=== PATIENT | female | born 1950 | race Caucasian/White ===

== ENCOUNTER 2023-04-08 11:03 | Outpatient (RCR) | payer MEDICARE, OTHER, SELFPAY | END 2023-04-08 23:59 | disposition home or self-care (01) | LOC: ROT 11:03 | PROVIDERS: ATTENDING PHYSICIAN Orthopaedic Surgery Hand Surgery | DX: S61.216D Laceration without foreign body of right little finger without damage to nail, subsequent encounter (principal); Z73.6 Limitation of activities due to disability | CPT/HCPCS: 97010; 97022; 97110; 97140; 97535 ==

== ENCOUNTER 2023-04-15 11:04 | Outpatient (RCR) | payer MEDICARE, OTHER, SELFPAY | END 2023-04-15 23:59 | disposition home or self-care (01) | LOC: ROT 11:04 | PROVIDERS: ATTENDING PHYSICIAN Orthopaedic Surgery Hand Surgery | DX: S61.216D Laceration without foreign body of right little finger without damage to nail, subsequent encounter (principal); Z73.6 Limitation of activities due to disability | CPT/HCPCS: 97022; 97110; 97140 ==

== ENCOUNTER 2023-07-08 09:59 | Outpatient (RCR) | payer MEDICARE, OTHER, SELFPAY | END 2023-07-08 23:59 | disposition home or self-care (01) | LOC: ROT 09:59 | PROVIDERS: ATTENDING PHYSICIAN Orthopaedic Surgery Hand Surgery; FAMILY PHYSICIAN Nurse Practitioner Family | DX: Z98.890 Other specified postprocedural states (principal); Z73.6 Limitation of activities due to disability | CPT/HCPCS: 97018; 97110; 97140; 97166; 97535 ==

== ENCOUNTER → 2024-01-10 12:00 | Outpatient (REF) | payer MEDICARE, OTHER, SELFPAY | LOC: DHSLP 12:00 | PROVIDERS: ATTENDING PHYSICIAN Internal Medicine; FAMILY PHYSICIAN Family Medicine | DX: G47.33 Obstructive sleep apnea (adult) (pediatric) (principal) | CPT/HCPCS: 95800 ==

== ENCOUNTER 2024-03-13 09:40 | Emergency (ER) | payer MEDICARE, OTHER, SELFPAY ==
[2024-03-13 09:55] VITALS: BP 116/70
[2024-03-13 10:27] LABS: % Basophils 0.4 % (0-2); % Eosinophils 1.6 % (0-6); % Immature Granulocytes 0.4 % (0-0.5); % Lymphocytes 24.1 % (20.5-51.1); % Monocytes 8.1 % (1.7-9.3); % Neutrophils 65.4 % (42.2-75.2); Absolute Eosinophils 0.1 10^3/uL (0-0.7); Absolute Lymphocytes 1.7 10^3/uL (1.2-3.4); Absolute Monocytes 0.6 10^3/uL (0.1-0.6); Absolute Neutrophils 4.6 10^3/uL (1.4-6.5); Hematocrit 39.3 % (37.0-47.0); Mean Corp Hgb Conc. 33.1 g/dL (33.0-37.0); Mean Corpuscular Hgb 30.2 pg (27.0-31.0); Mean Corpuscular Volume 91.2 fL (81.0-99.0); Mean Platelet Volume 10.4 fL (7.4-10.4); Nucleated Red Blood Cells % 0 %; Platelet Count 233 10^3/uL (130-400); Red Blood Cell Count 4.31 10^6/uL (4.20-5.40); Red Cell Dist. Width 12.4 % (11.5-14.5)
[2024-03-13 10:39] LABS: ALT (SGPT) 21 U/L (0-35); AST (SGOT) 23 U/L (14-36); Albumin 4.2 g/dl (3.5-5.0); Alkaline Phosphatase 67 U/L (38-126); Blood Urea Nitrogen 21 mg/dl (7-17); Calcium 9.3 mg/dl (8.4-10.2); Carbon Dioxide 26 mmol/L (22-30); Chloride 101 mmol/L (98-107); Glucose 140 mg/dl (70-99); Potassium 4.3 mmol/L (3.5-5.1); Sodium 136 mmol/L (135-145); Total Bilirubin 0.3 mg/dl (0.2-1.3); Total Protein 6.8 g/dl (6.3-8.2); eGFR > 60.00
[2024-03-13 10:50] LABS: Troponin I < 0.012 ng/ml
[2024-03-13 12:36] VITALS: BP 150/78
[2024-03-13 12:48] VITALS: BP 135/77
[2024-03-13 13:00] VITALS: BP 153/92
[2024-03-13 14:00] VITALS: BP 136/84
[2024-03-13 15:19] LABS: COVID-19 Antigen Negative (Negative)
[2024-03-13 16:01] VITALS: BP 115/61
--- NOTE | 2024-03-13 17:58 | ED.GENMED ---
History of Present Illness
General
Chief Complaint: Weakness
Source: patient
Exam Limitations: none
Time Seen by Provider: 03/13/24 12:39
Nursing documentation reviewed up to this point in time: agreed with
History of Present Illness
History of Present Illness:
73-year-old female with history of hypothyroidism presents to the ER for evaluation of generalized weakness and lightheadedness. Patient reports that she went down the stairs today and felt transient episode of lightheadedness and generalized
weakness. She says that she has had some generalized fatigue since then. She denies any syncope. She denies any chest pain, shortness of breath, palpitations. She denies any headache. Denies any abdominal flank pain. She denies any other
specific complaints.
Review of Systems
Review of Systems
All Other Systems: ROS reviewed and negative except as documented in HPI and ROS
Constitutional: Reports fatigue; Denies fever or chills
Respiratory: Denies cough or trouble breathing
Cardiac: Denies chest pain, palpitations or syncope
ABD/GI: Denies abdominal pain, nausea or vomiting
: Denies flank pain
Musculoskeletal: Denies neck pain or back pain
Neurological: Reports dizzy; Denies headache
Phy Exam
Physical Exam
Physical Exam:
General: Awake, alert, oriented x3; no acute distress
Head: Normocephalic, atraumatic
Eyes: Conjunctiva normal, EOMI
Throat: Airway intact, handling secretions
Neck: Trachea midline, supple without meningismus
Lungs: Clear to auscultation bilaterally, no wheezing, rales, rhonchi
Heart: Regular rate and rhythm, no murmurs, gallops, or rubs
Abd: Soft, non distended, nontender
Neuro: Cranial nerves grossly intact, speech fluid
Skin: no rash
Extremities: No edema in extremities, equal pulses in all extremities
Scores
Heart Failure Risk
Heart Failure Risk Score: Not Applicable
Heart Score for Chest Pain Patients
STEMI patient?: Not applicable
Withdrawal Assessment of Alcohol
Withdrawal Assessment Completed?: Not applicable
Course
Orders/Labs/Results
Orders:
Orders
03/13/24 09:58
Electrocardiogram (*1) Urgent
Reason for Study: Chest Pain
EKG- Treatment ONCE
Pulse Ox/spot Check [RESP] Urgent
Quantity: 1
Special Instructions: ON ROOM AIR
03/13/24 10:09
Complete Blood Count/With Diff Urgent
Comprehensive Metabolic Panel Urgent
Troponin I Urgent
Vitamin B12 Urgent
Comment: B12 ADDED ON BY FLOOR 2:30PM 03-13-24
03/13/24 14:33
Add On- LAB Urgent
Tests Added?: B12
03/13/24 14:53
COVID-19 Antigen Urgent
Source: Nasal Swab
Influenza A+B Rapid Molecular Urgent
ALEXANDRU Source: Nasal Swab
Specimen Description:
Abnormal Lab Results
03/13/24
10:09
BUN 21 H mg/dl
(7-17)
Glucose 140 H mg/dl
(70-99)
03/13/24 10:09
03/13/24 10:09
Vital Signs
Initial and Last Documented VS:
Initial Vital Signs
Temp Pulse Resp BP Pulse Ox
36.7 C 66 18 116/70 99
03/13/24 09:55 03/13/24 09:55 03/13/24 09:55 03/13/24 09:55 03/13/24 09:55
Last Documented Vital Signs
Temp Pulse Resp BP Pulse Ox
36.7 C 77 15 115/61 97
03/13/24 12:48 03/13/24 16:45 03/13/24 16:45 03/13/24 16:01 03/13/24 16:45
MDM/Problems Addressed
Differential Diagnosis Includes:
Anemia, electrolyte derangement, dehydration, viral illness
MDM/Problems Addressed:
73-year-old female presents with fatigue and transient episode of lightheadedness today. Vitals and exam as above. Labs sent off including a CBC and a CMP which were unremarkable. Troponin undetectable. COVID and flu negative. EKG shows sinus
rhythm. Vitals and telemetry stable on prolonged ED observation. Had a long discussion with the patient�no clear emergent pathology, offered admission for observation versus discharge with return precautions and PCP follow-up. Patient prefers to
go home today. She is ambulatory in the ED with normal gait and well-appearing on discharge. We spoke about return precautions and all questions answered.
*Pulse Oximetry
Patient hypoxic: no
*EKG
Interpreted by ED Provider?: Yes
Heart Rate: 64
Rate: normal
Rhythm: sinus
[place]: normal axis
Interval: normal interval
QRS Pattern: normal QRS
Ischemia: no ischemia
*Critical Care Note
Total Time (30-74mins, 75-104mins- exclusive of procedures): Not Applicable
Data Reviewed
Review of Other/Old Records Reveals: Labs and Records
Source: patient and records
Patient Management
Escalation/DeEscalation of care consider admission/obs:
Offered admission for observation versus discharge�patient prefers discharge
ED Attending Note
-
Portions of this chart may have been created with voice recognition software.� Occasional wrong word or��sound alike� substitutions may have occurred due to the inherent limitations of voice recognition software.
Discharge Plan
Departure
Patient Disposition: Home (Routine Discharge)
Date of Disposition: 03/13/24
Time of Disposition: 16:56
Patient with high blood pressure during this ER visit?: No
Discharge Problem:
Weakness
Instructions: Generalized Weakness (DC)
Prescriptions:
No Action
multivitamin Tablet
1 tab PO DAILY
levothyroxine [Synthroid] 75 mcg Tablet
75 mcg PO SUMOWEFRSA
levothyroxine [Synthroid] 50 mcg Tablet
50 mcg PO TUTH
ascorbic acid (vitamin C) [Vitamin C-Martina Hips-Acerola] 500 mg Tablet,Chewable
500 mg PO DAILY
Cerefolin 6-5-50-1 mg Tablet
1 tab PO DAILY
Vitamin D3
1 dose PO DAILY
magnesium
1 tab PO DAILY
melatonin 1 mg Tablet
2 mg PO HS PRN (Reason: sleep)
Zyrtec 10 mg Capsule
10 mg PO DAILY
Referrals:
Luz Cardona CRNP [Family Provider] - Follow up in 2-3 days
Activity Restrictions/Additional Instructions:
Thank you for visiting the Emergency Department at [facility].
1. Please schedule a follow up appointment as directed. Call first thing tomorrow morning to make an appointment.
2. If indicated, please take your medications as instructed and indicated on discharge paperwork.
3. If any of your symptoms do not improve, or persist, or become more severe within 6-12 hours, please return to the emergency department for further care.
4. Please return to the emergency department if you develop a headache, neck pain/stiffness, fever greater than 100.4F, chest pain, shortness of breath, persistent nausea, vomiting, slurred speech, difficulty walking, numbness/tingling, weakness,
signs of infection or any other symptoms that are worrisome to you.
Please call [phone] if you have any questions.
Interventions
Interventions:
*Risk Screen - Suicide Last Done: 03/13/24 17:20
*General Assessment Last Done: 03/13/24 12:57
*Neglect/Abuse Screening Last Done: 03/13/24 12:57
ED- Fall Risk Assessment Last Done: 03/13/24 12:32
*ED COVID-19 Vaccine History Last Done: 03/13/24 12:57
*Nursing Disposition Last Done: 03/13/24 17:20
ED- Cardiac Assessment Last Done: 03/13/24 12:32
ED- Neurological Assessment Last Done: 03/13/24 12:32
ED- Pulmonary Assessment Last Done: 03/13/24 12:32
Discharge Date and Time
Discharge Date/Time: 03/13/24 17:21
Print Language: NAURUAN
[2024-03-13 19:47] LABS: Vitamin B12 576 pg/ml (239-931)
== END 2024-03-13 17:21 | disposition home or self-care (01) ==
LOC: EMR 09:40
PROVIDERS: Emergency Medicine; EMERGENCY PHYSICIAN Emergency Medicine; FAMILY PHYSICIAN Nurse Practitioner Family
DX: R53.1 Weakness (principal); R42 Dizziness and giddiness; E03.9 Hypothyroidism, unspecified
CPT/HCPCS: 99284; 80053; 82607; 84484; 85025; 87502; 87811; 93005